=== PATIENT | male | born 1955 | race Two or more races ===

== ENCOUNTER 2022-11-18 10:15 | Inpatient (IN) | payer OTHER ==
[~2022-11-18] VITALS: Ht 167.6 cm; Wt 199.6 kg
[2022-11-27] MEDS ORDERED: ELIQUIS2.5 MG PO (11:21)
[2022-11-27] MEDS ORDERED: PERCOCET 5-3251 EACH PO (11:21)
== END 2022-11-27 12:05 | DRG 470 ==
LOC: SURH 11-23 05:45 → O/R 11-23 05:45 → SURH 11-23 10:15
PROVIDERS: ADMIT Orthopaedic Surgery; ATTEND Orthopaedic Surgery
PROC: 0SRC0J9 Replacement of Right Knee Joint with Synthetic Substitute, Cemented, Open Approach (ICD-10-PCS; principal; 2022-11-23 14:15)
PROC: 30233N1 Transfusion of Nonautologous Red Blood Cells into Peripheral Vein, Percutaneous Approach (ICD-10-PCS; 2022-11-24)
DX: M17.11 Unilateral primary osteoarthritis, right knee (principal); D62 Acute posthemorrhagic anemia; E87.1 Hypo-osmolality and hyponatremia; M81.0 Age-related osteoporosis without current pathological fracture; M22.11 Recurrent subluxation of patella, right knee; I10 Essential (primary) hypertension; Z96.651 Presence of right artificial knee joint; Z20.822 Contact with and (suspected) exposure to COVID-19; F10.90 Alcohol use, unspecified, uncomplicated